=== PATIENT | male | born 1955 | race Caucasian/White ===

== ENCOUNTER 2020-04-20 20:00 | Outpatient (CLI) | payer MEDICARE, SELFPAY | END 2020-04-20 20:01 | disposition home or self-care (01) | LOC: SLEEP 04-21 08:53 | PROVIDERS: Family Provider Internal Medicine; Visit Provider Internal Medicine | DX: G47.10 Hypersomnia, unspecified (principal); R06.83 Snoring; R53.83 Other fatigue; G47.33 Obstructive sleep apnea (adult) (pediatric) | CPT/HCPCS: 95810 ==

== ENCOUNTER 2020-05-07 20:00 | Outpatient (CLI) | payer MEDICARE, SELFPAY | END 2020-05-07 20:01 | disposition home or self-care (01) | LOC: SLEEP 05-08 09:59 | PROVIDERS: Family Provider Internal Medicine; Visit Provider Internal Medicine | DX: G47.33 Obstructive sleep apnea (adult) (pediatric) (principal) | CPT/HCPCS: 95811 ==

== ENCOUNTER 2021-06-14 08:44 | Emergency (ER) | payer MEDICARE, SELFPAY ==
--- NOTE | 2021-06-14 08:49 | CT_ITS ---
WS: [id number] CT ABDOMEN AND PELVIS WITH CONTRAST HISTORY: Abdominal pain and rectal bleeding. TECHNIQUE: Imaging performed of the abdomen and pelvis with IV contrast. Single phase imaging of the abdomen. Coronal and sagittal reformats are submitted. All CT scans at [facility] use at [address] one of these dose optimization techniques: automated exposure control; mA and/or kV adjustment per patient size (includes targeted exams where dose is matched to clinical indication); or iterative re construction. IV CONTRAST: Omnipaque 300; 95 mL IV. Oral contrast: No DLP: 1766.89 mGy.cm COMPARISON: None available. Lower thorax: Lung bases are clear. Heart is normal size. Moderate size hiatal hernia with increased surrounding fat. Liver/biliary system: Normal size with no intrahepatic dilatation. Gallbladder: Status post cholecystectomy. Pancreas: Normal size pancreas and pancreatic duct. No adjacent inflammation. Spleen: Normal size spleen. No mass or infarct. Adrenal glands: Normal. Right kidney: Normal size kidney with mild perinephric stranding. No obstruction. Left kidney: Normal size kidney with no obstruction or mass. No calcifications. Mild perinephric stra nding. Aorta: Normal. Lymphadenopathy: None. Free fluid: None. GI tract: Appendix is normal. There is moderate diffuse fecal retention. No obstructive pattern. Smal l bowel is negative. There is extensive diverticular disease with wall thickening throughout the desc ending and sigmoid colon. No definite focal area of acute diverticulitis. Abdominal wall: Unremarkable abdominal wall. No hernia. Pelvis: No free fluid or adenopathy within the pelvis. Bones: Unremarkable. CT/CT abdomen pelvis w con* [id number] IMPRESSION: 1. Marked diverticulosis involving the descending and sigmoid colon. No eviden ce for active acute diverticulitis. 2. No GI tract obstruction. 3. Normal appendix. 4. Prior cholecystectomy. 5. Moderate hiatal hernia.
[2021-06-14 09:07] VITALS: BP 158/88; PULSE 64; RESP 18; TEMP 36.9; O2SAT 95; BMI 33.0
[2021-06-14 09:45] VITALS: BP 105/66; PULSE 88; RESP 15; O2SAT 98
--- NOTE | 2021-06-14 10:03 | W.ED.GIBLEED ---
HPI - GI Bleed General: Chief complaint: GI Bleed Stated complaint: Rectal Bleeding Time Seen by Provider: 06/14/21 08:48 History of Present Illness: HPI Narrative: 66-year-old male presents emergency room complaining of rectal bleeding and pain that started 6 days ago. He has an large swelling that is exquisitely tender on the rectum and seems to be bleeding. Reports having had a colonoscopy earlier this year that was normal. MD complaint: gross hematochezia Onset (ago): day(s) Pain Consistency: intermittent Severity: mild Relieving factors: none Exacerbating factors: none Context: hemorrhoids Associated symptoms: Reports abdominal pain, nausea and poor appetite; Denies chills, easy bruising, epistaxis, fever(s), headache(s), malaise, other bleeding, rash, syncope, vomiting or weakness Treatments Prior to Arrival: none Review of Systems Const: Denies: fever(s), chills or malaise ENMT: Denies: epistaxis Card: Denies: syncope Resp: Denies: dyspnea, productive cough or non-productive cough GI: Reports: abdominal pain and nausea; Denies: vomiting : Denies: flank pain, dysuria, urinary frequency or urinary urgency Skin/Breast: Denies: rash Neuro: Denies: headache(s) Earl/Lymph: Denies: easy bruising Physical Exam Const: COMMON NORMALS: no acute distress GENERAL APPEARANCE: cooperative and comfortable ORIENTATION/CONSCIOUSNESS: Yes awake, Yes oriented to person, Yes oriented to place and Yes oriented to time HENMT: COMMON NORMALS: normocephalic, atraumatic and hearing grossly normal bilaterally HEAD & SCALP: normocephalic and atraumatic Neck/C-Spine: COMMON NORMALS: no JVD Resp: COMMON NORMALS: normal respiratory effort, No retractions, No use of accessory muscles and clear to auscultation bilaterally AUSCULTATION: clear to auscultation bilaterally Cardio: COMMON NORMALS: no JVD, regular rate, regular rhythm and No murmurs present (Cardio) RATE: regular rate RHYTHM: regular rhythm GI: COMMON NORMALS: Soft to palpation and No hepatosplenomegaly present AUSCULTATION: Yes normoactive bowel sounds PALPATION: Yes Soft to palpation, No Tenderness to palpation present (GI), No Guarding due to palpation present (GI) and Yes No hepatosplenomegaly present OTHER: Thrombosed hemorrhoids at the 2 to 4 o'clock position Extremity: COMMON NORMALS: normal to inspection, capillary refill normal, no clubbing, cyanosis or edema, no calf tenderness and no pedal edema Neuro: SENSORIUM/ORIENTATION: Yes oriented to person, Yes oriented to place and Yes oriented to time Skin: COMMON NORMALS: no rashes or lesions noted GENERAL SKIN EXAM: no rashes or lesions noted Course Vital Signs: Vital signs: Vital Signs Temperature 98.4 F 06/14/21 09:07 Pulse Rate 87 06/14/21 12:15 Respiratory Rate 18 06/14/21 12:15 Blood Pressure 148/88 06/14/21 12:15 Pulse Oximetry 98 06/14/21 12:15 MDM - GI Bleed MDM Narrative: Medical decision making narrative: Reviewed labs and imaging findings with patient. On exam he is thrombosed external hemorrhoids these were incised and drained after local anesthesia with 1% lidocaine with epi patient tolerated well did express clot from 2 hemorrhoids on the right side of the rectum at approximately 2 to 4 o'clock position. Will refer patient to surgery use topical Anusol and give hydrocodone for pain advised patient these probably will be a little bit sore but pain should be improved he may still have some bleeding if worsens return Lab Data: Labs: Lab Results 06/14/21 06/14/21 06/14/21 Range/Units 09:40 09:40 09:40 WBC 6.9 (4.0-10.0) 10^3/ uL RBC 5.04 (4.1-5.3) 10^6/u L Hgb 15.2 (11.7-16.6) g/dL Hct 45.3 (42.0-52.0) % MCV 89.9 (80-94) fl MCH 30.2 (28.0-34.0) pg MCHC 33.6 (30.0-36.0) g/dL RDW 11.9 L (12.1-15.1) % Plt Count 188 (130-400) 10^3/c mm MPV 9.7 (7.4-10.4) fL Neut % (Auto) 61.2 % Lymph % (Auto) 24.5 % [place] % (Auto) 7.3 % Eos % (Auto) 5.2 % Baso % (Auto) 1.2 % Neut # (Auto) 4.20 (1.8-7.7) 10^3/u L Lymph # (Auto) 1.7 (0.8-4.8) 10^3/u L [place] # (Auto) 0.5 (0.2-0.9) 10^3/u L Eos # (Auto) 0.4 (0.0-0.8) 10^3/u L Baso # (Auto) 0.1 (0.0-0.1) 10^3/u L Nucleated RBC % (a uto) 0 % Nucleated RBCs # 0.0 /100WBC PT 13.30 (12.1-14.9) SECO NDS INR 0.98 (0.8-1.2) APTT 27.7 (23.9-36.7) SECO NDS Sodium 139 (136-145) mmol/L Potassium 3.8 (3.5-5.1) mmol/L Chloride 106 (98-107) mmol/L Carbon Dioxide 25 (22-29) mmol/L Anion Gap 11.8 (5-19) BUN 13 (8-23) mg/dL Creatinine 0.9 (0.7-1.2) mg/dL GFR Calculation 84.2 L (90-130) mL/min Glucose 96 (65-115) mg/dL Calculated Osmolal ity 288 (285-295) mOsm/k g Calcium 8.8 (8.5-10.5) mg/dL Total Bilirubin 0.8 (0.15-1.2) mg/dL AST 20 (0-40) U/L ALT 21 (0-41) U/L Alkaline Phosphata se 73 (40-130) IU/L Total Protein 7.0 (6.6-8.7) g/dL Albumin 4.0 (3.5-5.2) g/dL Globulin 3.0 (1.3-4.6) g/dL Urine Color (Yellow) Urine Appearance (CLEAR) Urine pH (5-7) Ur Specific Gravit y (1.005-1.030) Urine Protein (Negative) Urine Glucose (UA) (Normal) Urine Ketones (Negative) Urine Blood (Negative) Urine Nitrate (Negative) Urine Bilirubin (Negative) Urine Urobilinogen (Negative) mg/dL Ur Leukocyte Sylvie ase (Negative) 06/14/21 Range/Units 09:40 WBC (4.0-10.0) 10^3/ uL RBC (4.1-5.3) 10^6/u L Hgb (11.7-16.6) g/dL Hct (42.0-52.0) % MCV (80-94) fl MCH (28.0-34.0) pg MCHC (30.0-36.0) g/dL RDW (12.1-15.1) % Plt Count (130-400) 10^3/c mm MPV (7.4-10.4) fL Neut % (Auto) % Lymph % (Auto) % [place] % (Auto) % Eos % (Auto) % Baso % (Auto) % Neut # (Auto) (1.8-7.7) 10^3/u L Lymph # (Auto) (0.8-4.8) 10^3/u L [place] # (Auto) (0.2-0.9) 10^3/u L Eos # (Auto) (0.0-0.8) 10^3/u L Baso # (Auto) (0.0-0.1) 10^3/u L Nucleated RBC % (a uto) % Nucleated RBCs # /100WBC PT (12.1-14.9) SECO NDS INR (0.8-1.2) APTT (23.9-36.7) SECO NDS Sodium (136-145) mmol/L Potassium (3.5-5.1) mmol/L Chloride (98-107) mmol/L Carbon Dioxide (22-29) mmol/L Anion Gap (5-19) BUN (8-23) mg/dL Creatinine (0.7-1.2) mg/dL GFR Calculation (90-130) mL/min Glucose (65-115) mg/dL Calculated Osmolal ity (285-295) mOsm/k g Calcium (8.5-10.5) mg/dL Total Bilirubin (0.15-1.2) mg/dL AST (0-40) U/L ALT (0-41) U/L Alkaline Phosphata se (40-130) IU/L Total Protein (6.6-8.7) g/dL Albumin (3.5-5.2) g/dL Globulin (1.3-4.6) g/dL Urine Color Yellow (Yellow) Urine Appearance Clear (CLEAR) Urine pH 5 (5-7) Ur Specific Gravit y 1.020 (1.005-1.030) Urine Protein Neg (Negative) Urine Glucose (UA) Norm (Normal) Urine Ketones Negative (Negative) Urine Blood Neg (Negative) Urine Nitrate Negative (Negative) Urine Bilirubin Neg (Negative) Urine Urobilinogen Norm (Negative) mg/dL Ur Leukocyte Sylvie ase Negative (Negative) Discharge Plan Discharge Patient Disposition: Home Clinical Impression: External thrombosed hemorrhoids, Lower gastrointestinal hemorrhage, Hematochezia Condition: Stable Prescriptions: New hydrocodone-acetaminophen 5-325 mg tablet 1 tab PO Q6H PRN (Reason: pain) Qty: 15 RF: 0 Anusol-HC 2.5 % cream with perineal applicator 1 applic DC Q6H 10 Days Qty: 30 RF: 0 Discharge Orders: Discharge ED (Routine); Ordered 06/14/21 Ordered By: Lai Loco Referrals: Emanuel Mims DO [Primary Care Provider] - Discharge Diet: Usual diet Discharge Activity: Resume usual activity Patient Instructions: Opioid Safety Activity Restrictions/Additional Instructions: Follow-up with general surgery for evaluation for 3 hemorrhoidectomy in the future. Coding Level of Care Code ED Front End Ui Developer for Keyshag Fwd Exam Comprehensive
[2021-06-14 10:04] LABS: Add Urine Microscopic? NO; Charge for UA Resulting for Rev
[2021-06-14 10:17] LABS: Basophils # 0.1 10^3/uL (0.0-0.1); Basophils % 1.2 %; Eosinophils # 0.4 10^3/uL (0.0-0.8); Eosinophils % 5.2 %; Hematocrit 45.3 % (42.0-52.0); Hemoglobin 15.2 g/dL (11.7-16.6); Lymphocytes # 1.7 10^3/uL (0.8-4.8); Lymphocytes % 24.5 %; Mean Corpuscular HGB Conc 33.6 g/dL (30.0-36.0); Mean Corpuscular Hemoglobin 30.2 pg (28.0-34.0); Mean Corpuscular Volume 89.9 fl (80-94); Mean Platelet Volume 9.7 fL (7.4-10.4); Monocytes # 0.5 10^3/uL (0.2-0.9); Monocytes % 7.3 %; Neutrophils % 61.2 %; Nucleated Red Blood Cells % 0 %; Platelet Count 188 10^3/cmm (130-400); Red Blood Count 5.04 10^6/uL (4.1-5.3); Red Cell Distribution Width 11.9 % (12.1-15.1); White Blood Count 6.9 10^3/uL (4.0-10.0)
[2021-06-14 10:21] LABS: Bilirubin Urine Neg (Negative); Blood Urine Neg (Negative); Glucose Urine UA Norm (Normal); INR 0.98 (0.8-1.2); Ketones Urine Negative (Negative); Leukocyte Esterase Urine Negative (Negative); Nitrate Urine Negative (Negative); Protein Urine Neg (Negative); Urine Appearance Clear (CLEAR); Urine Color Yellow (Yellow); Urobilinogen Urine Norm (Negative); pH Urine 5 (5-7)
[2021-06-14 10:22] LABS: Partial Thromboplastin Time 27.7 SECONDS (23.9-36.7)
[2021-06-14 10:26] LABS: Alanine Aminotransferase 21 U/L (0-41); Alkaline Phosphatase 73 IU/L (40-130); Anion Gap 11.8 (5-19); Aspartate Amino Transferase 20 U/L (0-40); Blood Urea Nitrogen 13 mg/dL (8-23); Calcium 8.8 mg/dL (8.5-10.5); Carbon Dioxide 25 mmol/L (22-29); Chloride 106 mmol/L (98-107); Glomerular Filtration Rate 84.2 mL/min (90-130); Glucose 96 mg/dL (65-115); Osmolality Calculated 288 mOsm/kg (285-295); Potassium 3.8 mmol/L (3.5-5.1); Sodium 139 mmol/L (136-145); Total Bilirubin 0.8 mg/dL (0.15-1.2)
[2021-06-14] MEDS: iohexol 300 mg/mL 100 mL Btl IV (10:39)
[2021-06-14 12:00] VITALS: BP 148/88; PULSE 87; RESP 18; O2SAT 98
[2021-06-14 12:15] VITALS: BP 148/88; PULSE 87; RESP 18; O2SAT 98
== END 2021-06-14 12:16 | disposition home or self-care (01) ==
PROVIDERS: Emergency Provider Family Medicine; PCP Internal Medicine
DX: K64.5 Perianal venous thrombosis (principal)
CPT/HCPCS: 74177; 80053; 81003; 85025; 85610; 85730; 99283; Q9967

== ENCOUNTER 2021-08-07 19:23 | Emergency (ER) | payer MEDICARE, SELFPAY ==
[2021-08-07 19:30] VITALS: BP 152/95; PULSE 100; RESP 16; TEMP 37.7; O2SAT 94
[2021-08-07 20:07] VITALS: BP 160/99; PULSE 93; RESP 19; O2SAT 93
--- NOTE | 2021-08-07 20:07 | XRR_ITS ---
PROCEDURE INFORMATION: Exam: XR Chest Exam date and time: 08/07/2021 8:07 PM Age: 66 years old Clinical indication: Fever; Additional info: Fevers TECHNIQUE: Imaging protocol: XR of the chest. Views: 1 view. COMPARISON: CR Chest 2 views* [id number] 08/13/2019 11:32 AM FINDINGS: Lungs: Unremarkable. No consolidation. Pleural spaces: Unremarkable. No pleural effusion. No pneumothorax. Heart/Mediastinum: Unremarkable. No cardiomegaly. Bones/joints: Unremarkable. XR/XR chest 1V portable [id number] IMPRESSION: No acute findings. Radiation Dose CTDIVOL = (mGy): DLP = (mGy-cm)
--- NOTE | 2021-08-07 20:09 | W.ED.FEVER ---
Documented by User: [email or web address] Krause 08/07/21 22:49 HPI - Fever General: Chief Complaint: Fever Stated Complaint: Fever, had surgery Time Seen by Provider: 08/07/21 19:47 Source: patient and family Mode of arrival: ambulatory Limitations: no limitations History of Present Illness: HPI Narrative: Patient is a nice 66-year-old male who presents to ED today with a complaint of fever and body aches. Patient tells me on 08/05 he had a hemorrhoidectomy performed by Dr. Whittaker at the surgical center. Patient states this morning he began having fevers as high as 101.2 as well as body aches. Patient reports they removed the gauze/packing from the surgical site yesterday. He has not noticed much bleeding or discharge. He is having soft bowel movements. Does feel slightly swollen down there . He does not complain of shortness of breath or difficulty breathing. There was no bladder catheterization during the procedure. Patient is vaccinated for COVID and influenza including COVID booster. MD elicited complaint: fever Onset (ago): hour(s) Measured temperature: 101.2 F Context: recent procedure Associated symptoms: Deny abdominal pain, flank pain, chest pain, diarrhea, dysuria, extremity pain, headache(s), nausea or vomiting Treatments prior to arrival fever: other (taking percocet for pain q 4-5 hours) Review of Systems Const: Reports: fever(s) and body aches ENMT: Denies: throat pain or odynophagia Card: Denies: chest pain or palpitations Resp: Denies: dyspnea, productive cough, non-productive cough or chest congestion GI: Denies: abdominal pain, nausea, vomiting or diarrhea : Denies: flank pain or dysuria Musc: Denies: neck pain, back pain, extremity pain or joint pain Skin/Breast: Denies: rash Neuro: Denies: headache(s) Physical Exam Const: COMMON NORMALS: no acute distress, average body habitus, patient oriented x3, no limitations, healthy appearing, alert and well nourished GENERAL APPEARANCE: cooperative ORIENTATION/CONSCIOUSNESS: Yes awake, Yes oriented to person, Yes oriented to place and Yes oriented to time Resp: COMMON NORMALS: normal respiratory effort and clear to auscultation bilaterally AUSCULTATION: clear to auscultation bilaterally Cardio: COMMON NORMALS: regular rate and regular rhythm RATE: regular rate RHYTHM: regular rhythm GI: COMMON NORMALS: Normal to inspection, nondistended, normoactive bowel sounds present, Soft to palpation, non-tender, No hepatosplenomegaly present and no masses PALPATION: Yes Soft to palpation and Yes No hepatosplenomegaly present OTHER: normal appearance to anus given recent surgery; there are no obvious masses, drainage, or cellulitis; JAYSON not performed due to recent surgery Neuro: COMMON NORMALS: patient oriented x3 SENSORIUM/ORIENTATION: Yes alert, Yes oriented to person, Yes oriented to place and Yes oriented to time Course Vital Signs: Vital signs: Vital Signs Temperature 99.8 F H 08/07/21 19:30 Pulse Rate 98 08/07/21 22:56 Respiratory Rate 17 08/07/21 22:56 Blood Pressure 162/101 08/07/21 22:56 Pulse Oximetry 92 08/07/21 22:56 MDM - Fever MDM Narrative: Medical decision making narrative: Patient is a 66-year-old male here for concerns of a fever of up to 101.2 and body aches that began today. He is 2 days status post presumed external hemorrhoidectomy although operative notes are not available. He arrives with low-grade fevers here of 99.8. He has a mild white count at 12.7. Remainder of labs are unremarkable. CXR negative. UA negative. Influenza and COVID negative. Try to contact Dr. 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 Recommended CT imaging to definitely rule out infection related to the procedure but patient declines and would like to go home. Patient was given IV Zosyn here and will be discharged home on oral Augmentin with strict instructions to contact Dr. Whittaker on Monday for further evaluation. Strict return to ED precautions given. Lab Data: Attestation: I reviewed the patient's lab results. Labs: Lab Results 08/07/21 08/07/21 08/07/21 20:25 20:25 20:30 WBC 12.7 10^3/uL H 10 ^3/uL (4.0-10.0) RBC 5.36 10^6/uL H 10 ^6/uL (4.1-5.3) Hgb 15.6 g/dL g/dL (11.7-16.6) Hct 47.7 % % (42.0-52.0) MCV 89.0 fl fl (80-94) MCH 29.1 pg pg (28.0-34.0) MCHC 32.7 g/dL g/dL (30.0-36.0) RDW 12.3 % % (12.1-15.1) Plt Count 180 10^3/cmm 10^3 /cmm (130-400) MPV 9.7 fL fL (7.4-10.4) Neut % (Auto) 70.9 % % Lymph % (Auto) 14.8 % % [place] % (Auto) 11.4 % % Eos % (Auto) 1.6 % % Baso % (Auto) 0.7 % % Neut # (Auto) 8.99 10^3/uL H 10 ^3/uL (1.8-7.7) Lymph # (Auto) 1.9 10^3/uL 10^3/ uL (0.8-4.8) Gilliam # (Auto) 1.5 10^3/uL H 10^ 3/uL (0.2-0.9) Eos # (Auto) 0.2 10^3/uL 10^3/ uL (0.0-0.8) Baso # (Auto) 0.1 10^3/uL 10^3/ uL (0.0-0.1) Nucleated RBC % (a uto) 0 % % Nucleated RBCs # 0.0 /100WBC /100W BC Sodium Potassium Chloride Carbon Dioxide Anion Gap BUN Creatinine GFR Calculation Glucose Calculated Osmolal ity Lactic Acid Calcium Total Bilirubin AST ALT Alkaline Phosphata se Total Protein Albumin Globulin Urine Color Urine Appearance Urine pH Ur Specific Gravit y Urine Protein Urine Glucose (UA) Urine Ketones Urine Blood Urine Nitrate Urine Bilirubin Urine Urobilinogen Ur Leukocyte Sylvie ase Influenza Type A A g Negative (Negative) Influenza Type B A g Negative (Negative) SARS-CoV-2 Ag (Rap id) Negative (Negative) 08/07/21 08/07/21 08/07/21 20:30 20:30 21:20 WBC RBC Hgb Hct MCV MCH MCHC RDW Plt Count MPV Neut % (Auto) Lymph % (Auto) [place] % (Auto) Eos % (Auto) Baso % (Auto) Neut # (Auto) Lymph # (Auto) Gilliam # (Auto) Eos # (Auto) Baso # (Auto) Nucleated RBC % (a uto) Nucleated RBCs # Sodium 133 mmol/L L mmol /L (136-145) Potassium 3.8 mmol/L mmol/L (3.5-5.1) Chloride 98 mmol/L mmol/L (98-107) Carbon Dioxide 22 mmol/L mmol/L (22-29) Anion Gap 16.8 (5-19) BUN 10 mg/dL mg/dL (8-23) Creatinine 0.8 mg/dL mg/dL (0.7-1.2) GFR Calculation 96.4 mL/min mL/mi n (90-130) Glucose 90 mg/dL mg/dL (65-115) Calculated Osmolal ity 275 mOsm/kg L mOs m/kg (285-295) Lactic Acid 1.2 mmol/L mmol/L (0.5-2.2) Calcium 9.0 mg/dL mg/dL (8.5-10.5) Total Bilirubin 1.0 mg/dL mg/dL (0.15-1.2) AST 25 U/L U/L (0-40) ALT 25 U/L U/L (0-41) Alkaline Phosphata se 82 IU/L IU/L (40-130) Total Protein 6.8 g/dL g/dL (6.6-8.7) Albumin 4.1 g/dL g/dL (3.5-5.2) Globulin 2.7 g/dL g/dL (1.3-4.6) Urine Color Yellow (Yellow) Urine Appearance Clear (CLEAR) Urine pH 6.5 (5-7) Ur Specific Gravit y 1.005 (1.005-1.030) Urine Protein Neg (Negative) Urine Glucose (UA) Norm (Normal) Urine Ketones Negative (Negative) Urine Blood Neg (Negative) Urine Nitrate Negative (Negative) Urine Bilirubin Neg (Negative) Urine Urobilinogen Norm mg/dL mg/dL (Negative) Ur Leukocyte Sylvie ase Negative (Negative) Influenza Type A A g Influenza Type B A g SARS-CoV-2 Ag (Rap id) Imaging Data^: CXR: My impression: NAD Radiologist's impression: [address] [place] [address] XRay Report Signed Patient: Oscar Dexter Kaye Unit #: [id number] : 1955 [facility][id number] Age/Sex: 66 / M ADM Date: 08/07/21 Loc: ER Room/Bed: Attending Dr: Ordering Provider/Ordering MD: Kinsey Escobedo Date of Service: 08/07/21 Procedure(s): XR chest 1V portable [id number] Accession Number(s): [id number] Report Number: [id number] PROCEDURE INFORMATION: Exam: XR Chest Exam date and time: 08/07/2021 8:07 PM Age: 66 years old Clinical indication: Fever; Additional info: Fevers TECHNIQUE: Imaging protocol: XR of the chest. Views: 1 view. COMPARISON: CR Chest 2 views* [id number] 08/13/2019 11:32 AM FINDINGS: Lungs: Unremarkable. No consolidation. Pleural spaces: Unremarkable. No pleural effusion. No pneumothorax. Heart/Mediastinum: Unremarkable. No cardiomegaly. Bones/joints: Unremarkable. XR/XR chest 1V portable [id number] IMPRESSION: No acute findings. Radiation Dose CTDIVOL = (mGy): DLP = (mGy-cm) Dictated By: Mike Rojas MD Signed By: Mike Rojas MD Signed Date/Time: 08/07/212234 DD/ 06 Discharge Plan Discharge Patient Disposition: Home Clinical Impression: Postsurgical fever Condition: Stable Prescriptions: New Augmentin 875-125 mg tablet 1 tab PO Q12H 7 Days Qty: 14 RF: 0 No Action hydrocodone-acetaminophen 5-325 mg tablet 1 tab PO Q6H PRN (Reason: pain) Qty: 15 RF: 0 Discharge Orders: Discharge ED (Routine); Ordered 08/07/21 Ordered By: Kinsey Escobedo Referrals: Michael Whittaker MD [Physician] - Emanuel Mims DO [Primary Care Provider] - Activity Restrictions/Additional Instructions: As we have discussed you have elected not to proceed with CT imaging at this time. We will place you on empiric antibiotics and as we discussed you need to contact Dr. Whittaker on Monday for further instructions/evaluation. You need to return to the emergency department immediately for worsening fevers, severe rectal pain/swelling, inability to hold down your antibiotics, or any other concerns you may have. I hope you begin to feel better soon. Coding Level of Care Code ED Pet Stylist for Chg Fwd Exam Expanded Problem Focused Documented by User: Waqar Smith DO 08/07/21 23:49 HPI - Fever General: Chief Complaint: Fever Stated Complaint: Fever, had surgery Time Seen by Provider: 08/07/21 19:47 Course Vital Signs: Vital signs: Vital Signs Temperature 99.8 F H 08/07/21 19:30 Pulse Rate 98 08/07/21 22:56 Respiratory Rate 17 08/07/21 22:56 Blood Pressure 162/101 08/07/21 22:56 Pulse Oximetry 92 08/07/21 22:56 MDM - Fever MDM Narrative: Medical decision making narrative: This patient was originally seen by Mrs. Escobedo?JESSIE Sorenson. I agree with her history, evaluation, and treatment. Lab Data: Labs: Lab Results 08/07/21 08/07/21 08/07/21 20:25 20:25 20:30 WBC 12.7 10^3/uL H 10 ^3/uL (4.0-10.0) RBC 5.36 10^6/uL H 10 ^6/uL (4.1-5.3) Hgb 15.6 g/dL g/dL (11.7-16.6) Hct 47.7 % % (42.0-52.0) MCV 89.0 fl fl (80-94) MCH 29.1 pg pg (28.0-34.0) MCHC 32.7 g/dL g/dL (30.0-36.0) RDW 12.3 % % (12.1-15.1) Plt Count 180 10^3/cmm 10^3 /cmm (130-400) MPV 9.7 fL fL (7.4-10.4) Neut % (Auto) 70.9 % % Lymph % (Auto) 14.8 % % Gilliam % (Auto) 11.4 % % Eos % (Auto) 1.6 % % Baso % (Auto) 0.7 % % Neut # (Auto) 8.99 10^3/uL H 10 ^3/uL (1.8-7.7) Lymph # (Auto) 1.9 10^3/uL 10^3/ uL (0.8-4.8) Gilliam # (Auto) 1.5 10^3/uL H 10^ 3/uL (0.2-0.9) Eos # (Auto) 0.2 10^3/uL 10^3/ uL (0.0-0.8) Baso # (Auto) 0.1 10^3/uL 10^3/ uL (0.0-0.1) Nucleated RBC % (a uto) 0 % % Nucleated RBCs # 0.0 /100WBC /100W BC Sodium Potassium Chloride Carbon Dioxide Anion Gap BUN Creatinine GFR Calculation Glucose Calculated Osmolal ity Lactic Acid Calcium Total Bilirubin AST ALT Alkaline Phosphata se Total Protein Albumin Globulin Urine Color Urine Appearance Urine pH Ur Specific Gravit y Urine Protein Urine Glucose (UA) Urine Ketones Urine Blood Urine Nitrate Urine Bilirubin Urine Urobilinogen Ur Leukocyte Sylvie ase Influenza Type A A g Negative (Negative) Influenza Type B A g Negative (Negative) SARS-CoV-2 Ag (Rap id) Negative (Negative) 08/07/21 08/07/21 08/07/21 20:30 20:30 21:20 WBC RBC Hgb Hct MCV MCH MCHC RDW Plt Count MPV Neut % (Auto) Lymph % (Auto) Gilliam % (Auto) Eos % (Auto) Baso % (Auto) Neut # (Auto) Lymph # (Auto) Gilliam # (Auto) Eos # (Auto) Baso # (Auto) Nucleated RBC % (a uto) Nucleated RBCs # Sodium 133 mmol/L L mmol /L (136-145) Potassium 3.8 mmol/L mmol/L (3.5-5.1) Chloride 98 mmol/L mmol/L (98-107) Carbon Dioxide 22 mmol/L mmol/L (22-29) Anion Gap 16.8 (5-19) BUN 10 mg/dL mg/dL (8-23) Creatinine 0.8 mg/dL mg/dL (0.7-1.2) GFR Calculation 96.4 mL/min mL/mi n (90-130) Glucose 90 mg/dL mg/dL (65-115) Calculated Osmolal ity 275 mOsm/kg L mOs m/kg (285-295) Lactic Acid 1.2 mmol/L mmol/L (0.5-2.2) Calcium 9.0 mg/dL mg/dL (8.5-10.5) Total Bilirubin 1.0 mg/dL mg/dL (0.15-1.2) AST 25 U/L U/L (0-40) ALT 25 U/L U/L (0-41) Alkaline Phosphata se 82 IU/L IU/L (40-130) Total Protein 6.8 g/dL g/dL (6.6-8.7) Albumin 4.1 g/dL g/dL (3.5-5.2) Globulin 2.7 g/dL g/dL (1.3-4.6) Urine Color Yellow (Yellow) Urine Appearance Clear (CLEAR) Urine pH 6.5 (5-7) Ur Specific Gravit y 1.005 (1.005-1.030) Urine Protein Neg (Negative) Urine Glucose (UA) Norm (Normal) Urine Ketones Negative (Negative) Urine Blood Neg (Negative) Urine Nitrate Negative (Negative) Urine Bilirubin Neg (Negative) Urine Urobilinogen Norm mg/dL mg/dL (Negative) Ur Leukocyte Sylvie ase Negative (Negative) Influenza Type A A g Influenza Type B A g SARS-CoV-2 Ag (Rap id) Discharge Plan Discharge Patient Disposition: Home Clinical Impression: Postsurgical fever Condition: Stable Prescriptions: New Augmentin 875-125 mg tablet 1 tab PO Q12H 7 Days Qty: 14 RF: 0 No Action hydrocodone-acetaminophen 5-325 mg tablet 1 tab PO Q6H PRN (Reason: pain) Qty: 15 RF: 0 Discharge Orders: Discharge ED (Routine); Ordered 08/07/21 Ordered By: Kinsey Escobedo Referrals: Michael Whittaker MD [Physician] - Emanuel Mims DO [Primary Care Provider] - Activity Restrictions/Additional Instructions: As we have discussed you have elected not to proceed with CT imaging at this time. We will place you on empiric antibiotics and as we discussed you need to contact Dr. Whittaker on Monday for further instructions/evaluation. You need to return to the emergency department immediately for worsening fevers, severe rectal pain/swelling, inability to hold down your antibiotics, or any other concerns you may have. I hope you begin to feel better soon. Coding Level of Care Code ED Pet Stylist for Cong Fwd Exam Expanded Problem Focused
[2021-08-07 20:46] LABS: Basophils # 0.1 10^3/uL (0.0-0.1); Basophils % 0.7 %; Eosinophils # 0.2 10^3/uL (0.0-0.8); Eosinophils % 1.6 %; Hematocrit 47.7 % (42.0-52.0); Hemoglobin 15.6 g/dL (11.7-16.6); Lymphocytes # 1.9 10^3/uL (0.8-4.8); Lymphocytes % 14.8 %; Mean Corpuscular HGB Conc 32.7 g/dL (30.0-36.0); Mean Corpuscular Hemoglobin 29.1 pg (28.0-34.0); Mean Platelet Volume 9.7 fL (7.4-10.4); Monocytes # 1.5 10^3/uL (0.2-0.9); Monocytes % 11.4 %; Neutrophils # 8.99 10^3/uL (1.8-7.7); Neutrophils % 70.9 %; Nucleated Red Blood Cells % 0 %; Platelet Count 180 10^3/cmm (130-400); Red Blood Count 5.36 10^6/uL (4.1-5.3); Red Cell Distribution Width 12.3 % (12.1-15.1); White Blood Count 12.7 10^3/uL (4.0-10.0)
[2021-08-07 21:05] LABS: Lactic Sepsis W/Reflex 1.2 mmol/L (0.5-2.2)
[2021-08-07] MEDS: sodium chloride 0.9% 1,000 ML 999 ML IV (21:05)
[2021-08-07 21:06] LABS: SARS Covid-2 Antigen Negative (Negative)
[2021-08-07 21:07] LABS: Influenza A by IFA Negative (Negative); Influenza B by IFA Negative (Negative)
[2021-08-07 21:08] LABS: Alanine Aminotransferase 25 U/L (0-41); Albumin Level 4.1 g/dL (3.5-5.2); Alkaline Phosphatase 82 IU/L (40-130); Anion Gap 16.8 (5-19); Aspartate Amino Transferase 25 U/L (0-40); Blood Urea Nitrogen 10 mg/dL (8-23); Carbon Dioxide 22 mmol/L (22-29); Chloride 98 mmol/L (98-107); Globulin 2.7 g/dL (1.3-4.6); Glomerular Filtration Rate 96.4 mL/min (90-130); Glucose 90 mg/dL (65-115); Osmolality Calculated 275 mOsm/kg (285-295); Potassium 3.8 mmol/L (3.5-5.1); Sodium 133 mmol/L (136-145); Total Protein 6.8 g/dL (6.6-8.7)
[2021-08-07 21:45] LABS: Add Urine Microscopic? NO; Charge for UA Resulting for Rev
[2021-08-07 21:51] LABS: Bilirubin Urine Neg (Negative); Blood Urine Neg (Negative); Glucose Urine UA Norm (Normal); Ketones Urine Negative (Negative); Leukocyte Esterase Urine Negative (Negative); Nitrate Urine Negative (Negative); Protein Urine Neg (Negative); Specific Gravity, Urine 1.005 (1.005-1.030); Urine Appearance Clear (CLEAR); Urine Color Yellow (Yellow); Urobilinogen Urine Norm (Negative); pH Urine 6.5 (5-7)
[2021-08-07] MEDS: piperacillin-tazobactam 3.375 GM in sodium chloride 0.9% (plus) 50 ML IV (22:47)
[2021-08-07 22:48] VITALS: RESP 19
[2021-08-07] MEDS: morphine 4 mg/mL SDV 1 mL IVP (22:48)
[2021-08-07] MEDS: ondansetron 2 mg/ML SDV 2 mL 4 MG IVP (22:48)
[2021-08-07 22:56] VITALS: BP 162/101; PULSE 98; RESP 17; O2SAT 92
== END 2021-08-07 23:30 | disposition home or self-care (01) ==
PROVIDERS: Emergency Provider Physician Assistant; PCP Internal Medicine
DX: R50.82 Postprocedural fever (principal); Z20.822 Contact with and (suspected) exposure to COVID-19
CPT/HCPCS: 71045; 80053; 81003; 83605; 85025; 87426; 87804; 96365; 96375; 99283; J2270; J2405; J2543; J7030

== ENCOUNTER 2022-06-07 11:20 | Outpatient (CLI) | payer MEDICARE, SELFPAY ==
[2022-06-07 11:28] VITALS: BMI 33.7
--- NOTE | 2022-06-07 11:35 | ECG_ITS ---
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 Interpretive Statements Name of study: Treadmill stress test Indication: Chest pain, shortness of breath Baseline blood pressure of 141/98 mm Hg, heart rate 57 beats per minute. EKG showed normal sinus rhythm, normal axis with normal ST-T's. The patient exercised for 7 minutes on a standard Geraldo protocol. Patient attained a maximum heart rate of 147 beats per minute(96% of the maximum predicted heart rate) with a blood pressure at the peak exercise of 193/100 mm Hg. The EKG at the peak exercise revealed half millimeter ST depression in V4 to V6 not meeting criteria for ischemia. Patient did not have any chest pain or any significant arrhythmis with the exercise. The study was terminated due to maximal effort. During the recovery phase, there were no new changes. Blood pressure at the end of the recovery phase was 182/91 mm Hg with a heart rate of 85 beats per minute. CONCLUSION: 1. Normal EKG response to treadmill exercise. 2. No exercise-induced chest pain or cardiac arrhythmia. 3. Excellent exercise tolerance for age, attained a maximum of 10.2 METs. 4. Baseline hypertension with normal response to exercise. 5. Suarez treadmill score of 4.5. Electronically Signed On 06-30-2022 10:23:02 CDT by Leila Cormier M.D. [id number]
[2022-06-07 13:19] VITALS: BP 102/91; PULSE 88
== END 2022-06-07 11:21 | disposition home or self-care (01) ==
LOC: CDL 11:23
PROVIDERS: PCP Internal Medicine; Visit Provider Internal Medicine
DX: R07.9 Chest pain, unspecified (principal); R06.02 Shortness of breath
CPT/HCPCS: 93017

== ENCOUNTER 2025-03-11 10:05 | Outpatient (CLI) | payer MEDICARE, SELFPAY ==
--- NOTE | 2025-03-11 10:13 | MR_ITS ---
WS: [id number] MRI LUMBAR SPINE NONCONTRAST TECHNIQUE: Sagittal T1, T2 and STIR imaging. Axial T1 and T2 imaging. CLINICAL INFORMATION: LUMBAR RADICULOPATHY COMPARISON: None. FINDINGS: Mild lumbar curve. No acute compression. No high-grade central canal stenosis. L1-L2: Mild facet arthropathy. L2-L3: Narrowing of the subarticular recess bilaterally. Mild LEFT foraminal narrowing. Moderate facet arthropathy. L3-L4: Mild annular bulging. Impingement LEFT subarticular recess and traversing LEFT L4 nerve root. Mild LEFT greater than RIGHT foraminal narrowing. Moderate facet arthropathy. L4-L5: Central protrusion with a small annular fissure. Impingement traversing L5 nerve roots bilaterally. Mild LEFT foraminal narrowing. Moderate facet arthropathy. L5-S1: Mild annular bulging with a tiny central protrusion. Spinal canal and foramen are patent. Moderate facet arthropathy. Visualized pelvic bony structures: Normal. Paravertebral soft tissues: Normal. MR/MR lumbar spine wo con* [id number] IMPRESSION: 1. Mild disc bulging with a small annular tear at L4-5. Impingement of merry ing L5 nerve roots bilaterally. Moderate facet arthropathy. Mild LEFT greater t greenberg RIGHT foraminal narrowing at this level. 2. Annular bulging L3-4 with impingement traversing LEFT L4 nerve root in the subarticular recess. Mild LEFT foraminal narrowing with a small LEFT foraminal protrusion. 3. Narrowing of the subarticular recess L2-3 with mild LEFT foraminal narrowin g. 4. Moderate facet arthropathy L3-L5.
== END 2025-03-11 10:06 | disposition home or self-care (01) ==
LOC: RAD 10:08
PROVIDERS: PCP Family Medicine; Visit Provider Family Medicine
DX: M54.16 Radiculopathy, lumbar region (principal); M51.369 Other intervertebral disc degeneration, lumbar region without mention of lumbar back pain or lower extremity pain; M47.896 Other spondylosis, lumbar region; M51.26 Other intervertebral disc displacement, lumbar region; M43.8X6 Other specified deforming dorsopathies, lumbar region; R93.7 Abnormal findings on diagnostic imaging of other parts of musculoskeletal system; M51.379 Other intervertebral disc degeneration, lumbosacral region without mention of lumbar back pain or lower extremity pain; M47.897 Other spondylosis, lumbosacral region
CPT/HCPCS: 72148

== ENCOUNTER 2025-03-13 12:14 | Outpatient (CLI) | payer MEDICARE, SELFPAY ==
[2025-03-13 12:51] VITALS: BMI 28.7
--- NOTE | 2025-03-13 12:54 | ECG_ITS ---
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 Interpretive Statements Lung unchanged pre/post procedure; Intraprocedure shortess of breath; Symptoms resoled by discharge PROCEDURE: At the baseline, the patient's blood pressure was 122/87 with a heart rate of 69. The baseline electrocardiogram showed normal sinus rhythm with some nonspecific T wave changes. The patient exercised for 7 minutes on a standard Geraldo protocol. Patient attained a maximum heart rate of 140 beats per minute(93% of the maximum predicted heart rate) with a blood pressure at the peak exercise of 155/64 mm Hg. The EKG at the peak exercise revealed no significant changes. Patient did not have any chest pain or any significant cardiac arrhythmias with the exercise During the recovery phase, there were no new changes. Blood pressure at the end of the recovery phase was 162/73 mm Hg with a heart rate of 84 per minute. CONCLUSION: 1. No significant EKG changes with treadmill exercise 2. No exercise-induced chest pain or cardiac arrhythmia 3. Fair exercise tolerance, attained a maximum of 10.2 METs Electronically Signed On 03-14-2025 22:20:40 CDT by Delvis Guajardo M.D. [id number]
[2025-03-13 13:39] VITALS: BP 126/66; PULSE 88
== END 2025-03-13 12:15 | disposition home or self-care (01) ==
LOC: CDL 12:16
PROVIDERS: PCP Family Medicine; Visit Provider Family Medicine
DX: R07.89 Other chest pain (principal)
CPT/HCPCS: 93017

== ENCOUNTER → 2025-04-14 09:57 | Outpatient (BNVA) | payer MEDICARE, SELFPAY | PROVIDERS: PCP Family Medicine; Referring Provider Physician Assistant; Visit Provider Anesthesiology Pain Medicine | DX: M54.9 Dorsalgia, unspecified (principal); M51.16 Intervertebral disc disorders with radiculopathy, lumbar region | CPT/HCPCS: 99204 ==

== ENCOUNTER 2025-04-15 06:14 | Outpatient (CLI) | payer MEDICARE, SELFPAY ==
--- NOTE | 2025-04-15 06:28 | MR_ITS ---
WS: [id number] MRI THORACIC SPINE noncontrast. HISTORY: THORACIC STENOSIS COMPARISON: None available. TECHNIQUE: Multiplanar sequences are performed in sagittal and axial planes. Mild curvature of the thoracic spine. Posterior thoracic vertebral bodies are normally aligned. No cord compression. No atrophy or edema. Minimal disc space narrowing. No marrow edema or fracture. No facet joint synovitis. Mild facet joint arthropathy throughout the thoracic spine. There is no high-grade central or foraminal stenosis. No focal disc protrusions. Paravertebral soft tissues are normal. Mildly ectatic thoracic aorta. Moderate size hiatal hernia. MR/MR thoracic spin wo con* [id number] IMPRESSION: 1. Mild thoracic curvature. 2. No high-grade central or foraminal stenosis. 3. No thoracic spine fracture. 4. Normal signal within the thoracic cord.
== END 2025-04-15 06:15 | disposition home or self-care (01) ==
LOC: RAD 06:15
PROVIDERS: PCP Family Medicine; Visit Provider Physician Assistant
DX: M47.814 Spondylosis without myelopathy or radiculopathy, thoracic region (principal); I77.810 Thoracic aortic ectasia; R26.81 Unsteadiness on feet
CPT/HCPCS: 72146